=== PATIENT | female | born 1980 | race American Indian/Alaskan Native ===

== ENCOUNTER 2021-09-08 09:21 | Observation (INO) | payer OTHER ==
--- NOTE | 2021-09-08 10:12 | Emergency Department Report ---
HPI - General Chief Complaint: Dizziness Time Seen by Provider: 09/08/21 09:49 - HPI HPI: Room 25 The patient is a 41-year-old female present with a chief complaint of dizziness. 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 Patient states she would have intermittent palpitations. Patient states she felt as though she was going to pass out so she sat herself down on the ground. The patient states the dizziness eventually improved and subsided however she continues to have chest tightness. Patient states she became diaphoretic and nauseous with the chest tightness but denies vomiting or shortness of breath. Patient denies headache. Patient currently gives her chest tightness a score of 2-3/10. Patient states she had a normal stress test in the beginning of the year but has never had a cardiac catheterization ED Past Medical Hx - Past Medical History Previous Medical History?: Yes Hx Hypertension: Yes Hx Diabetes: Yes Additional medical history: Atrial fibrillation - Surgical History Past Surgical History?: No - Family History Family history: no significant - Social History Smoking Status: Never Smoker Substance Use Type: None (Denies illicit drug use) ED Review of Systems ROS: Stated complaint: LIGHT HEADED /MALAIZE Other details as noted in HPI Constitutional: diaphoresis Eyes: denies: eye pain ENT: denies: throat pain Respiratory: denies: shortness of breath Cardiovascular: chest pain, palpitations Endocrine: no symptoms reported Gastrointestinal: nausea. denies: vomiting Genitourinary: denies: dysuria Musculoskeletal: denies: back pain Neurological: vertigo. denies: headache Physical Exam - Physical Exam Vital Signs: Vital Signs 09/08/21 09/08/21 09/08/21 09:26 09:50 09:51 Temperature 98.4 F Pulse Rate 80 62 Respiratory 16 Rate Blood Pressure 170/103 [Right] O2 Sat by Pulse 100 98 Oximetry Physical Exam: GENERAL: The patient is well-developed well-nourished female lying on stretcher not appearing to be in acute distress. [] HEENT: Normocephalic. Atraumatic. Extraocular motions are intact. Patient has moist mucous membranes. No nystagmus noted NECK: Supple. Trachea midline CHEST/LUNGS: Clear to auscultation. There is no respiratory distress noted. HEART/CARDIOVASCULAR: Regular. There is no tachycardia. There is no gallop rub or murmur. ABDOMEN: Abdomen is soft, nontender. Patient has normal bowel sounds. There is no abdominal distention. SKIN: There is no rash. There is no edema. There is no diaphoresis. NEURO: The patient is awake, alert, and oriented. The patient is cooperative. The patient has no focal neurologic deficits. The patient has normal speech. Cranial nerves II through XII grossly intact. GCS 15. No dysmetria noted with [id number] bilaterally. NIHSS=0 MUSCULOSKELETAL: There is no evidence of acute injury. ED Course Vital Signs 09/08/21 09/08/21 09/08/21 09:26 09:50 09:51 Temperature 98.4 F Pulse Rate 80 62 Respiratory 16 Rate Blood Pressure 170/103 [Right] O2 Sat by Pulse 100 98 Oximetry ED Medical Decision Making - Lab Data Result diagrams: 09/08/21 10:17 09/08/21 10:17 Laboratory Tests 09/08/21 09/08/21 09/08/21 10:17 10:17 10:17 WBC 9.6 RBC 5.21 H Hgb 12.1 Hct 37.5 MCV 72 L MCH 23 L MCHC 32 RDW 16.7 H Plt Count 433 Lymph % (Auto) 24.3 O'Brien % (Auto) 4.3 Eos % (Auto) 2.7 Baso % (Auto) 0.7 Lymph # (Auto) 2.3 [place] # (Auto) 0.4 Eos # (Auto) 0.3 Baso # (Auto) 0.1 Seg Neutrophils % 68.0 Seg Neutrophils # 6.5 D-Dimer 140.31 Sodium 137 Potassium 3.9 Chloride 102.2 Carbon Dioxide 21 L Anion Gap 18 BUN 10 Creatinine 0.6 Estimated GFR > 60 BUN/Creatinine Ratio 17 Glucose 213 H Calcium 9.5 Magnesium 1.90 Total Creatine Kinase 51 CK-MB (CK-2) 1.0 CK-MB (CK-2) Rel Index 1.9 Troponin T < 0.010 TSH Free T4 HCG, Qual 09/08/21 09/08/21 10:17 10:17 WBC RBC Hgb Hct MCV MCH MCHC RDW Plt Count Lymph % (Auto) [place] % (Auto) Eos % (Auto) Baso % (Auto) Lymph # (Auto) [place] # (Auto) Eos # (Auto) Baso # (Auto) Seg Neutrophils % Seg Neutrophils # D-Dimer Sodium Potassium Chloride Carbon Dioxide Anion Gap BUN Creatinine Estimated GFR BUN/Creatinine Ratio Glucose Calcium Magnesium Total Creatine Kinase CK-MB (CK-2) CK-MB (CK-2) Rel Index Troponin T TSH 1.520 Free T4 1.16 HCG, Qual Negative - EKG Data -: EKG Interpreted by Me EKG shows normal: sinus rhythm Rate: normal - EKG Data When compared to previous EKG there are: previous EKG unavailable Interpretation: normal EKG - Radiology Data Radiology results: report reviewed (CT head), image reviewed (CT head, chest x- ray) interpreted by me: Chest x-ray-no definite focal infiltrates, no pneumothorax [facility] [address] [place] [address] Cat Scan Report Signed Patient: DARREN JOHNSON MR#: [id number] : 1980 Acct:[id number] Age/Sex: 41 / F ADM Date: 09/08/21 Loc: ED Attending Dr: Ordering Physician: ISRAEL EARL MD Date of Service: 09/08/21 Pr ocedure(s): CT head/brain wo con Accession Number(s): [id number] cc: ISRAEL EARL MD NONENHANCED CT SCAN OF THE HEAD: INDICATION / CLINICAL INFORMATION: 41 years Female; Dizziness. TECHNIQUE: Routine CT head without contrast. All CT scans at this location are performed using CT dose reduction for ALARA by means of automated exposure control. COMPARISON: None. FINDINGS: BRAIN / INTRACRANIAL CONTENTS: No acute hemorrhage, mass effect, midline shift, hydrocephalus, or acute, large territorial infarct. No chronic infarct or focal atrophy. Mild to moderate volume loss in the cerebellar vermis. No significant white matter abnormality. CRANIOCERVICAL JUNCTION: No significant abnormality. ORBITS: No si gnificant abnormality of visualized orbits. SINUSES / MASTOIDS: No significant abnormality of the visualized paranasal sinuses or mastoid air cells. ADDITIONAL FINDINGS: None. IMPRESSION: No focal parenchymal lesion Signer Name: Vadim Manzano MD Signed: 09/08/2021 12:12 PM Workstation Name: [id number] Transcribed By: BS Dictated By: Vadim Young MD Electronically Authenticated By: Vadim Young MD Signed Date/Time: 09/08/21 1212 DD/ 1126 TD/TT: Print Cancel - Differential Diagnosis Vertigo, ACS, ICH, dysrhythmia, PE Critical care attestation.: If time is entered above; I have spent that time in minutes in the direct care of this critically ill patient, excluding procedure time. ED Disposition Clinical Impression: Chest tightness, Near syncope Disposition: ADMITTED INPATIENT Is pt being admited?: Yes Does the pt Need Aspirin: Yes Condition: Stable Referrals: PRIMARY CARE, [Primary Care Provider] - 3-5 Days Time of Disposition: 12:39 (Hospitalist called (Dr. Verde)) Heart Score - HEART Score History: Highly suspicious EKG: Non-specific Age: < 45 Risk factors: 1-2 risk factors Troponin: < normal limit HEART Score: 4 - EKG Read Time Time EKG Completed: 09:52 EKG Read Time: 09:52
[2021-09-08 10:44] LABS: Basophils # (Auto) 0.1 K/mm3 (0.0-0.1); Basophils % (Auto) 0.7 % (0.0-1.8); Eosinophils # (Auto) 0.3 K/mm3 (0.0-0.4); Eosinophils % (Auto) 2.7 % (0.0-4.3); Hematocrit 37.5 % (30.3-42.9); Hemoglobin 12.1 gm/dl (10.1-14.3); Lymphocytes # (Auto) 2.3 K/mm3 (1.2-5.4); Lymphocytes % (Auto) 24.3 % (13.4-35.0); Mean Corpuscular HGB Conc 32 % (30-34); Mean Corpuscular Volume 72 fl (79-97); Monocytes # (Auto) 0.4 K/mm3 (0.0-0.8); Monocytes % (Auto) 4.3 % (0.0-7.3); Platelet Count 433 K/mm3 (140-440); Red Blood Count 5.21 M/mm3 (3.65-5.03); Red Cell Distribution Width 16.7 % (13.2-15.2)
[2021-09-08 11:06] LABS: Blood Urea Nitrogen 10 mg/dL (7-17); Calcium 9.5 mg/dL (8.4-10.2); Hemolysis Index 12
[2021-09-08] MEDS ORDERED: SODIUM CHLORIDE 0.9% 1000 ML 1,000 ML ONE (11:07)
[2021-09-08 11:13] LABS: Free T4 (Free Thyroxine) 1.16 ng/dL (0.76-1.46)
[2021-09-08] MEDS ORDERED: ONDANSETRON 4 MG/2 ML INJ IV ONE (12:10)
[2021-09-08] MEDS ORDERED: NITROGLYCERIN 2% OINT 1 GM TP ONE (12:10)
[2021-09-08] MEDS ORDERED: fentaNYL 100 MCG/2 ML INJ IV ONE (12:10)
[2021-09-08 12:16] LABS: BUN/Creatinine Ratio 17
--- NOTE | 2021-09-08 12:16 | Cat Scan Report ---
NONENHANCED CT SCAN OF THE HEAD: INDICATION / CLINICAL INFORMATION: 41 years Female; Dizziness. TECHNIQUE: Routine CT head without contrast. All CT scans at this location are performed using CT dos e reduction for ALARA by means of automated exposure control. COMPARISON: None. FINDINGS: BRAIN / INTRACRANIAL CONTENTS: No acute hemorrhage, mass effect, midline shift, hydrocephalus, or acu te, large territorial infarct. No chronic infarct or focal atrophy. Mild to moderate volume loss in t he cerebellar vermis. No significant white matter abnormality. CRANIOCERVICAL JUNCTION: No significant abnormality. ORBITS: No significant abnormality of visualized orbits. SINUSES / MASTOIDS: No significant abnormality of the visualized paranasal sinuses or mastoid air doris ls. ADDITIONAL FINDINGS: None. IMPRESSION: No focal parenchymal lesion Signer Name: Vadim Manzano MD Signed: 09/08/2021 12:12 PM Workstation Name: [id number]
[2021-09-08] MEDS ORDERED: ASPIRIN 325 MG TAB PO ONE (12:38)
--- NOTE | 2021-09-08 12:40 | History and Physical Report ---
History of Present Illness Chief complaint: My heart rate being fast and I felt like I was going to pass out History of present illness: 41 YO Female with Obesity, HTN, DM, Paroxysmal Atrial Fib not prescribed anticoagulation presents to ED for evaluation. Patient reports "my heart started beating fast and I felt like I was going to pass out". Patient states that while at work she experienced a sudden onset of chest palpitation followed by dizziness and lightheadedness. Patient knowledges dizziness, diaphoresis, nausea. EMS was notified and upon arrival the patient was found to be in distress and subsequent transported to [facility] for further care and evaluation of the aforementioned symptoms. The patient was seen and evaluated in the emergency department. Other imaging studies reviewed. Patient found to have symptoms consistent with paroxysmal atrial fibrillation, as well as angina. Patient placed in observation status and admitted to telemetry. Patient denies fever, chills, chest pain, productive cough, skin rash, recent ill contact, or known exposure to COVID-19, unilateral leg swelling, calf pain, prolonged travel/immobility, individual/family history of DVT/PE/bleeding/blood clotting disorders. No prior admission for review. All medication listed at time of admission has been reconciled. EKG reveals normal sinus rhythm. Advanced care planning conducted in ED. Past History Past Medical History: atrial fib, diabetes, hypertension, other (See HPI) Past Surgical History: No surgical history, Other (Reviewed) Social history: , lives with family. denies: smoking, alcohol abuse, prescription drug abuse Family history: diabetes, hypertension Medications and Allergies Allergies Allergy/AdvReac Type Severity Reaction Status Date / Time No Known Allergies Allergy Verified 09/08/21 09:53 Review of Systems Constitutional: weakness, no weight loss, no weight gain, no fever, no chills Ears, nose, mouth and throat: no ear pain, no tinnitis, no nose pain, no sinus pressure Breasts: no change in shape Cardiovascular: palpitations, lightheadedness Respiratory: no cough, no cough with sputum, no excessive sputum Gastrointestinal: nausea, no vomiting, no diarrhea, no constipation, no change in bowel habits, no hematemesis Genitourinary Female: no pelvic pain, no flank pain, no dysuria, no urinary frequency, no urgency Rectal: no pain, no incontinence, no bleeding Musculoskeletal: no neck stiffness, no neck pain, no shooting arm pain, no arm numbness/tingling, no low back pain, no shooting leg pain Integumentary: no rash, no pruritis, no redness, no sores, no wounds, no jaundice Neurological: no transient paralysis, no paralysis, no weakness, no parathesias, no tingling Psychiatric: no anxiety, no change in sleep habits, no insomnia, no suicidal ideation Endocrine: no cold intolerance, no polyphagia, no excessive thirst, no polydipsia, no nocturia Hematologic/Lymphatic: no easy bruising Allergic/Immunologic: no urticaria Exam - Constitutional Vitals: Temp Pulse Resp BP Pulse Ox 98.4 F 72 13 136/79 99 09/08/21 09:26 09/08/21 10:16 09/08/21 10:16 09/08/21 10:16 09/08/21 10:16 General appearance: Present: mild distress - EENT Eyes: Present: PERRL ENT: hearing intact, clear oral mucosa - Neck Neck: Present: supple, normal ROM - Respiratory Respiratory effort: normal Respiratory: bilateral: CTA - Cardiovascular Rhythm: regular Heart Sounds: Present: S1 & S2. Absent: rub, click - Extremities Extremities: pulses symmetrical, No edema Peripheral Pulses: within normal limits - Abdominal General gastrointestinal: Present: soft, non-tender, non-distended, normal bowel sounds Female genitourinary: Present: normal - Integumentary Integumentary: Present: clear, warm, dry - Musculoskeletal Musculoskeletal: gait normal, strength equal bilaterally - Psychiatric Psychiatric: appropriate mood/affect, intact judgment & insight - Neurologic Neurologic: CNII-XII intact, moves all extremities HEART Score - HEART Score EKG: Non-specific Age: < 45 Risk factors: 1-2 risk factors Troponin: Troponin T < 0.010 ng/mL (0.00-0.029) 09/08/21 10:17 Troponin: < normal limit Results - Labs CBC & Chem 7: 09/08/21 10:17 09/08/21 10:17 Labs: Abnormal lab results 09/08/21 09/08/21 Range/Units 10:17 10:17 RBC 5.21 H (3.65-5.03) M/mm3 MCV 72 L (79-97) fl MCH 23 L (28-32) pg RDW 16.7 H (13.2-15.2) % Carbon Dioxide 21 L (22-30) mmol/L Glucose 213 H (65-100) mg/dL Assessment and Plan - Patient Problems (1) Angina at rest Current Visit: Yes Status: Acute Plan to address problem: Serial cardiac enzymes, EKG, telemetry monitoring, supportive care. (2) Atrial fibrillation Current Visit: Yes Status: Acute Qualifiers: Atrial fibrillation type: paroxysmal Qualified Code(s): I48.0 - Paroxysmal atrial fibrillation Plan to address problem: Atrial fibrillation resolved. Patient back to normal sinus rhythm. Resume aspirin, outpatient cardiology follow-up. (3) Obesity (BMI 35.0-39.9 without comorbidity) Current Visit: Yes Status: Acute Plan to address problem: Balanced diet, increase physical activity discharge, outpatient pulmonary follow-up for sleep study. (4) Hypertension Current Visit: Yes Status: Acute Qualifiers: Hypertension type: primary hypertension Qualified Code(s): I10 - Essential (primary) hypertension Plan to address problem: Monitor blood pressure every shift, continue medical management. (5) Diabetes Current Visit: Yes Status: Acute Plan to address problem: Consistent carbohydrate diet, hypoglycemia protocol, insulin protocol, Accu- Chek. (6) Near syncope Current Visit: Yes Status: Acute Plan to address problem: CT head, neuro check, supportive care. (7) Advance care planning Current Visit: Yes Status: Acute Plan to address problem: Disease education conducted, care plan discussed, diagnoses discussed, prognosis discussed. Patient is full code. Patient counseled regarding paroxysmal atrial fibrillation and need to resume aspirin. Patient instructed follow with cardiology as outpatient with 3 to 5 days for reevaluation and discussion of Holter monitoring. +30 minutes. Patient and acknowledged understanding and agreement with care plan.
--- NOTE | 2021-09-08 12:40 | XRay Report ---
CHEST 1 VIEW 09/08/2021 11:29 AM INDICATION / CLINICAL INFORMATION: chest pain. COMPARISON: None available. FINDINGS: SUPPORT DEVICES: None. HEART / MEDIASTINUM: No significant abnormality. LUNGS / PLEURA: No significant pulmonary or pleural abnormality. No pneumothorax. ADDITIONAL FINDINGS: No significant additional findings. IMPRESSION: No acute abnormality. Signer Name: Steven Patterson MD Signed: 09/08/2021 12:36 PM Workstation Name: [id number]
[2021-09-08] MEDS ORDERED: HYDROmorphone 1 MG/1 ML INJ IV PRN (12:48)
[2021-09-08] MEDS ORDERED: ONDANSETRON 4 MG/2 ML INJ IV PRN (12:48)
[2021-09-08] MEDS ORDERED: oxyCODONE /ACETAMINOPHEN 5-325MG TAB PO PRN (12:48)
[2021-09-08] MEDS ORDERED: ACETAMINOPHEN 325 MG TAB PO PRN ×2 (12:48→15:57)
--- NOTE | 2021-09-08 13:42 | Electrocardiograph Report ---
[facility] Test Date: 2021-09-08 Test Time: 09:52:52 Pat Name: DARREN JOHNSON Department: Room: Gender: F Ad Setter: JENAE : 1980 Requested By: ISRAEL EARL Order Number: [id number] Reading MD: Felisa Garvin Measurements Intervals [place] Rate: 67 P: 36 TX: 179 QRS: 2 QRSD: 107 T: 11 QT: 400 QTc: 423 Interpretive Statements Sinus rhythm No previous ECG available for comparison Electronically Signed On 09-08-2021 13:42:11 EST by Felisa Garvin
[2021-09-08] MEDS ORDERED: traMADol 50 MG TAB PO PRN (15:57)
[2021-09-08] MEDS: ASPIRIN EC 325 MG TAB PO SCH (19:00)
[2021-09-08] MEDS: FAMOTIDINE 20 MG TAB PO SCH (22:24)
[2021-09-09 02:58] LABS: Bacteria,Urine 1+ /HPF (Negative); Bilirubin,Urine NEG (Negative); Blood,Urine NEG (Negative); Color,Urine Straw (Yellow); Mucus,Urine FEW /HPF; Protein,Urine <15 mg/dL mg/dL (Negative); Urobilinogen,Urine < 2.0 mg/dL (<2.0)
[2021-09-09] MEDS: ASPIRIN EC 325 MG TAB PO SCH (09:21)
[2021-09-09] MEDS: FAMOTIDINE 20 MG TAB PO SCH ×2 (09:21→21:53)
--- NOTE | 2021-09-09 09:35 | Consultation ---
History of Present Illness Consult date: 09/09/21 Requesting physician: DARSHAN HOU Consult reason: atrial fibrillation, chest pain History of present illness: Pt is a 41-year-old AA female with a hx HTN and DM2, as well as a remote hx of AF (10-12 years ago per pt report, not on any oral anticoagulation), who presented with complaints of palpitations and lightheadedness. 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 She denies syncope. Pt reports associated palpitations, which she has been experiencing intermittently for the past several years. She reports subsequent chest tightness that dissipated after a few minutes. Pt believes this episode to be stress-induced. Trop neg x 3. ECG reveals NSR, no acute ischemic changes. Pt is currently followed by a Cardiologi st in [facility] whose name she is unable to recall. She reports that she underwent cardiac stress testing in October 2020, which did not reveal any significant ischemia. Past History Past Medical History: atrial fib, diabetes, hypertension Past Surgical History: denies: valve replacement, CABG, PTCA Social history: , lives with family. denies: smoking, alcohol abuse Family history: diabetes, hypertension Medications and Allergies Allergies Allergy/AdvReac Type Severity Reaction Status Date / Time No Known Allergies Allergy Verified 09/08/21 09:53 Home Medications Medication Instructions Recorded Confirmed Last Taken Type Empagliflozin [Jardiance] 25 mg PO QDAY 09/09/21 09/09/21 09/07/21 History Insulin Glargine,Hum.rec.anlog 32 unit SQ HS 09/09/21 09/09/21 09/07/21 History [Lantus Solostar] amLODIPine [Norvasc] 5 mg PO DAILY 09/09/21 09/09/21 09/07/21 History glipiZIDE XL [Glucotrol Xl] 10 mg PO QAM 09/09/21 09/09/21 09/07/21 History Active Meds: Active Medications Acetaminophen (Acetaminophen 325 Mg Tab) 650 mg PO Q4H PRN PRN Reason: Pain MILD(1-3)/Fever >100.5/RINCON Aspirin (Aspirin Ec 325 Mg Tab) 325 mg PO QDAY NICKI Last Admin: 11/11/21 09:21 Dose: 325 mg Documented by: Famotidine (Famotidine 20 Mg Tab) 20 mg PO BID COUNTS INCLUDE 234 BEDS AT THE [facility] Last Admin: 09/09/21 09:21 Dose: 20 mg Documented by: Hydromorphone HCl (Hydromorphone 1 Mg/1 Ml Inj) 0.5 mg IV Q23H PRN PRN Reason: Pain , Severe (7-10) Metoprolol Tartrate (Metoprolol Tartrate 50 Mg Tab) 50 mg PO BID COUNTS INCLUDE 234 BEDS AT THE [facility] Ondansetron HCl (Ondansetron 4 Mg/2 Ml Inj) 4 mg IV Q8H PRN PRN Reason: Nausea And Vomiting Oxycodone/Acetaminophen (Oxycodone /Acetaminophen 5-325mg Tab) 1 tab PO Q16H PRN PRN Reason: Pain, Moderate (4-6) Sodium Chloride (Sodium Chloride 0.9% 10 Ml Flush Syringe) 10 ml IV BID COUNTS INCLUDE 234 BEDS AT THE [facility] Last Admin: 09/09/21 09:21 Dose: 10 ml Documented by: Sodium Chloride (Sodium Chloride 0.9% 10 Ml Flush Syringe) 10 ml IV PRN PRN PRN Reason: LINE FLUSH Tramadol HCl (Tramadol 50 Mg Tab) 50 mg PO Q6H PRN PRN Reason: Pain, Moderate (4-6) Review of Systems Constitutional: no fever, no chills Ears, nose, mouth and throat: no nasal congestion, no sore throat Cardiovascular: chest pain, lightheadedness, no orthopnea, no edema, no syncope, no shortness of breath, no claudication Respiratory: no cough, no shortness of breath Gastrointestinal: no abdominal pain, no nausea, no vomiting Genitourinary Female: no flank pain, no dysuria Musculoskeletal: no neck stiffness, no neck pain, no myalgias Integumentary: no rash, no wounds Neurological: no head injury, no paralysis, no numbness, no tingling, no seizures, no syncope, no vertigo, no headaches Endocrine: no cold intolerance, no heat intolerance Hematologic/Lymphatic: no easy bruising, no easy bleeding Allergic/Immunologic: no anaphylaxis Physical Examination Last Vital Signs Temp 98.8 F 09/09/21 07:53 Pulse 61 09/09/21 07:53 Resp 20 09/09/21 07:53 BP 120/68 09/09/21 07:53 Pulse Ox 98 09/09/21 08:16 General appearance: no acute distress HEENT: Positive: EOMI, Normocephaly, Mucus Membranes Moist Neck: Positive: neck supple, trachea midline. Negative: JVD/HJR Cardiac: Positive: Reg Rate and Rhythm, S1/S2. Negative: Audible Murmur Lungs: Positive: clear to auscultation Neuro: Positive: Grossly Intact Abdomen: Positive: Soft. Negative: Tender Skin: Negative: Rash Musculoskeletal: No Pain, Normal Range of Motion Extremities: Present: upper extr. pulses, lower extr. pulses. Absent: edema Results 09/08/21 10:17 09/08/21 10:17 Cardiac Enzymes 09/08/21 Range/Units 10:17 CK-MB (CK-2) 1.0 (0.0-4.0) ng/mL CBC 09/08/21 Range/Units 10:17 WBC 9.6 (4.5-11.0) K/mm3 RBC 5.21 H (3.65-5.03) M/mm3 Hgb 12.1 (10.1-14.3) gm/dl Hct 37.5 (30.3-42.9) % Plt Count 433 (140-440) K/mm3 Lymph # (Auto) 2.3 (1.2-5.4) K/mm3 [place] # (Auto) 0.4 (0.0-0.8) K/mm3 Eos # (Auto) 0.3 (0.0-0.4) K/mm3 Baso # (Auto) 0.1 (0.0-0.1) K/mm3 Comprehensive Metabolic Panel 09/08/21 Range/Units 10:17 Sodium 137 (137-145) mmol/L Potassium 3.9 (3.6-5.0) mmol/L Chloride 102.2 (98-107) mmol/L Carbon Dioxide 21 L (22-30) mmol/L BUN 10 (7-17) mg/dL Creatinine 0.6 (0.6-1.2) mg/dL Glucose 213 H (65-100) mg/dL Calcium 9.5 (8.4-10.2) mg/dL - Imaging and Cardiology Echo: pending EKG: report reviewed, image reviewed - EKG Interpretation EKG: no acute changes EKG interpretations - Telemetry EKG Rhythm: Sinus Rhythm - EKG Sinus rhythms and dysrhythmias: sinus rhythm Assessment and Plan AMI r/o. Echo reviewed - EF 55-60%, mild diastolic dysfunction, no significant valvular abnormalities. No evidence of AF or other arrhythmias on 12-lead ECG or telemetry this admission. Pt is not on oral anticoagulation. Recommend outpatient event monitor (if warranted). Will defer to Primary Direct Marketing Manager. Coronary CTA may be considered as an outpatient as well. Recommend switching Amlodipine to low-dose beta benita (Lopressor 25mg BID). Otherwise stable cardiac status. No objection to discharge from [place]. Follow-up with Primary Direct Marketing Manager in 1-2 weeks. Pt seen in conjunction with Dr. Morrell, who agrees with the assessment and plan of care. - Patient Problems (1) Atypical chest pain Current Visit: Yes Status: Acute (2) Near syncope Current Visit: Yes Status: Acute (3) PAF (paroxysmal atrial fibrillation) Current Visit: Yes Status: Chronic (4) Hypertension Current Visit: Yes Status: Chronic Qualifiers: Hypertension type: primary hypertension Qualified Code(s): I10 - Essential (primary) hypertension (5) DM2 (diabetes mellitus, type 2) Current Visit: Yes Status: Chronic (6) Obesity Current Visit: Yes Status: Chronic Qualifiers: Obesity classification: adult class 2 (BMI 35 - 39.9)
--- NOTE | 2021-09-09 09:52 | Progress Note ---
Assessment and Plan Assessment and plan: Chest pain CAD. Patient with history of CABG and PTCA. Atrial fibrillation with RVR Diabetes mellitus type 2 Hypertension 09/09/2021. Follow-up echocardiogram. Cardiology plans for coronary CTA. Continue aspirin and beta-benita. Continue SSRI, insulin, glipizide and Accu- Cheks. Rate is currently controlled History Interval history: No new issues overnight Hospitalist Physical - Constitutional Vitals: Temp Pulse Resp BP Pulse Ox 98.8 F 61 20 120/68 98 09/09/21 07:53 09/09/21 07:53 09/09/21 07:53 09/09/21 07:53 09/09/21 08:16 General appearance: Present: mild distress - EENT Eyes: Present: PERRL, EOM intact ENT: hearing intact, clear oral mucosa, dentition normal - Neck Neck: Present: supple, normal ROM - Respiratory Respiratory effort: normal Respiratory: bilateral: CTA - Cardiovascular Rhythm: regular Heart Sounds: Present: S1 & S2. Absent: gallop, rub - Extremities Extremities: no ischemia, No edema, Full ROM - Abdominal General gastrointestinal: soft, non-tender, non-distended, normal bowel sounds - Integumentary Integumentary: Present: clear, warm, dry - Neurologic Neurologic: CNII-XII intact, moves all extremities HEART Score - HEART Score EKG: Non-specific Age: < 45 Risk factors: 1-2 risk factors Troponin: Troponin T < 0.010 ng/mL (0.00-0.029) 09/09/21 05:01 Troponin: < normal limit Results - Labs CBC & Chem 7: 09/08/21 10:17 09/08/21 10:17 Labs: Laboratory Last Values WBC 9.6 K/mm3 (4.5-11.0) 09/08/21 10:17 RBC 5.21 M/mm3 (3.65-5.03) H 09/08/21 10:17 Hgb 12.1 gm/dl (10.1-14.3) 09/08/21 10:17 Hct 37.5 % (30.3-42.9) 09/08/21 10:17 MCV 72 fl (79-97) L 09/08/21 10:17 MCH 23 pg (28-32) L 09/08/21 10:17 MCHC 32 % (30-34) 09/08/21 10:17 RDW 16.7 % (13.2-15.2) H 09/08/21 10:17 Plt Count 433 K/mm3 (140-440) 09/08/21 10:17 Lymph % (Auto) 24.3 % (13.4-35.0) 09/08/21 10:17 [place] % (Auto) 4.3 % (0.0-7.3) 09/08/21 10:17 Eos % (Auto) 2.7 % (0.0-4.3) 09/08/21 10:17 Baso % (Auto) 0.7 % (0.0-1.8) 09/08/21 10:17 Lymph # (Auto) 2.3 K/mm3 (1.2-5.4) 09/08/21 10:17 [place] # (Auto) 0.4 K/mm3 (0.0-0.8) 09/08/21 10:17 Eos # (Auto) 0.3 K/mm3 (0.0-0.4) 09/08/21 10:17 Baso # (Auto) 0.1 K/mm3 (0.0-0.1) 09/08/21 10:17 Seg Neutrophils % 68.0 % (40.0-70.0) 09/08/21 10:17 Seg Neutrophils # 6.5 K/mm3 (1.8-7.7) 09/08/21 10:17 D-Dimer 140.31 ng/mlDDU (0-234) 09/08/21 10:17 Sodium 137 mmol/L (137-145) 09/08/21 10:17 Potassium 3.9 mmol/L (3.6-5.0) 09/08/21 10:17 Chloride 102.2 mmol/L (98-107) 09/08/21 10:17 Carbon Dioxide 21 mmol/L (22-30) L 09/08/21 10:17 Anion Gap 18 mmol/L 09/08/21 10:17 BUN 10 mg/dL (7-17) 09/08/21 10:17 Creatinine 0.6 mg/dL (0.6-1.2) 09/08/21 10:17 Estimated GFR > 60 ml/min 09/08/21 10:17 BUN/Creatinine Ratio 17 % 09/08/21 10:17 Glucose 213 mg/dL (65-100) H 09/08/21 10:17 POC Glucose 179 mg/dL (70-105) H 09/08/21 22:38 Calcium 9.5 mg/dL (8.4-10.2) 09/08/21 10:17 Magnesium 1.90 mg/dL (1.7-2.3) 09/08/21 10:17 Total Creatine Kinase 51 units/L (30-135) 09/08/21 10:17 CK-MB (CK-2) 1.0 ng/mL (0.0-4.0) 09/08/21 10:17 CK-MB (CK-2) Rel Index 1.9 (0-4) 09/08/21 10:17 Troponin T < 0.010 ng/mL (0.00-0.029) 09/09/21 05:01 NT-Pro-B Natriuret Pep 18.65 pg/mL (0-450) 09/08/21 10:17 TSH 1.520 mlU/mL (0.270-4.200) 09/08/21 10:17 Free T4 1.16 ng/dL (0.76-1.46) 09/08/21 10:17 HCG, Qual Negative (Negative) 09/08/21 10:17 Urine Color Straw (Yellow) 09/09/21 Unknown Urine Turbidity Clear (Clear) 09/09/21 Unknown Urine pH 5.0 (5.0-7.0) 09/09/21 Unknown Ur Specific [place] 1.017 (1.003-1.030) 09/09/21 Unknown Urine Protein <15 mg/dl mg/dL (Negative) 09/09/21 Unknown Urine Glucose (UA) >=500 mg/dL (Negative) 09/09/21 Unknown Urine Ketones Tr mg/dL (Negative) 09/09/21 Unknown Urine Blood Neg (Negative) 09/09/21 Unknown Urine Nitrite Neg (Negative) 09/09/21 Unknown Urine Bilirubin Neg (Negative) 09/09/21 Unknown Urine Urobilinogen < 2.0 mg/dL (<2.0) 09/09/21 Unknown Ur Leukocyte Esterase Sm (Negative) 09/09/21 Unknown Urine WBC (Auto) 5.0 /HPF (0.0-6.0) 09/09/21 Unknown Urine RBC (Auto) 5.0 /HPF (0.0-6.0) 09/09/21 Unknown U Epithel Cells (Auto) 1.0 /HPF (0-13.0) 09/09/21 Unknown Urine Bacteria (Auto) 1+ /HPF (Negative) 09/09/21 Unknown Urine Mucus Few /HPF 09/09/21 Unknown Urine Yeast (Budding) Few /HPF 09/09/21 Unknown Wu/IV: Voiding Method Toilet Active Medications - Current Medications Current Medications: Generic Name Dose Route Start Last Admin Trade Name Freq PRN Reason Stop Dose Admin Acetaminophen 650 mg 09/08/21 12:48 Acetaminophen 325 Mg Tab PO Q4H PRN Pain MILD(1-3)/Fever >100.5/RINCON Aspirin 325 mg 09/08/21 18:30 09/09/21 09:21 Aspirin Ec 325 Mg Tab PO 325 mg QDAY NICKI Administration Famotidine 20 mg 09/08/21 22:00 09/09/21 09:21 Famotidine 20 Mg Tab PO 20 mg BID NICKI Administration Hydromorphone HCl 0.5 mg 09/08/21 12:48 Hydromorphone 1 Mg/1 Ml Inj IV Q23H PRN Pain , Severe (7-10) Metoprolol Tartrate 50 mg 09/09/21 10:00 Metoprolol Tartrate 50 Mg Tab PO BID NICKI Ondansetron HCl 4 mg 09/08/21 12:48 Ondansetron 4 Mg/2 Ml Inj IV Q8H PRN Nausea And Vomiting Oxycodone/Acetaminophen 1 tab 09/08/21 12:48 Oxycodone /Acetaminophen 5-325mg Tab PO Q16H PRN Pain, Moderate (4-6) Sodium Chloride 10 ml 09/08/21 22:00 09/09/21 09:21 Sodium Chloride 0.9% 10 Ml Flush Syringe IV 10 ml BID NICKI Administration Sodium Chloride 10 ml 09/08/21 17:27 Sodium Chloride 0.9% 10 Ml Flush Syringe IV PRN PRN LINE FLUSH Tramadol HCl 50 mg 09/08/21 15:57 Tramadol 50 Mg Tab PO Q6H PRN Pain, Moderate (4-6)
[2021-09-09] MEDS ORDERED: METOPROLOL TARTRATE 50 MG TAB PO SCH (10:00)
--- NOTE | 2021-09-09 12:02 | Electrocardiograph Report ---
[facility] Test Date: 2021-09-09 Test Time: 07:24:58 Pat Name: DARREN SOLANO Department: Room: A468 1 Gender: F Environmental Research Scientist: MADALYN : 1980 Requested By: SHANELL FONTANEZ Order Number: [id number] Reading MD: Felisa Garvin Measurements Intervals [place] Rate: 63 P: 41 [place]: 169 QRS: 25 QRSD: 107 T: 24 QT: 429 QTc: 439 Interpretive Statements Sinus rhythm Compared to ECG 09/08/2021 09:52:52 No significant changes Electronically Signed On 09-09-2021 12:02:11 EST by Felisa Garvin
[2021-09-09] MEDS: METOPROLOL TARTRATE 25 MG TAB PO SCH (21:53)
[2021-09-09] MEDS ORDERED: NON-FORMULARY EACH (Insulin Glargine,Hum.Rec.Anlog [Lantus Solostar] 100 UNIT/ML Insuln.Pe SQ SCH (22:00)
[2021-09-09] MEDS ORDERED: INSULIN GLARGINE 100 UNITS/ML SUB-Q SCH (22:00)
[2021-09-10 07:42] VITALS: BP 125/71
--- NOTE | 2021-09-10 08:49 | Discharge Summary ---
Providers - Providers Date of Admission: 09/08/21 12:50 Date of discharge: 09/10/21 Attending physician: DARSHAN HOU 09/08/21 Consult to Cardiac Rehabilitation [CONS] Routine Reason For Exam: Phase I 09/09/21 07:34 Consult to Physician [CONS] Routine Comment: Consulting Provider: RUDDY BRADLEY Physician Instructions: Reason For Exam: afib, cp Primary care physician: BARREL RIB MATTING MACHINE OPERATOR Hospitalization Reason for admission: cp, afib Condition: Stable Hospital course: Pt is a 41-year-old AA female with a hx HTN and DM2, as well as a remote hx of AF (10-12 years ago per pt report, not on any oral anticoagulation), who presented with complaints of palpitations and lightheadedness. 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 She denied syncope. Pt reports associated palpitations, which she has been experiencing intermittently for the past several years. She reported subsequent chest tightness that dissipated after a few minutes. Pt believes this episode to be stress-induced. Trop neg x 3. ECG reveals NSR, no acute ischemic changes. Pt is currently followed by a Charge Hand in [facility] whose name she is unable to recall. She reported that she underwent cardiac stress testing in October 2020, which did not reveal any significant ischemia. The patient was admitted with diagnosis of atypical chest pain, near syncope, paroxysmal atrial fibrillation, hypertension, diabetes mellitus type 2 and obesity. The patient was seen by cardiology in consultation and underwent echocardiogram. Echocardiogram revealed EF 55-60%, mild diastolic dysfunction, no significant valvular abnormalities. No evidence of AF or other arrhythmias on 12-lead ECG or telemetry this admission. Pt is not on oral anticoagulation. Cardiology recommended outpatient event monitor (if warranted) with primary Charge Hand. Coronary CTA may be considered as an outpatient as well. Amlodipine was changed to low-dose beta-benita Lopressor 25 mg twice daily. Follow-up with primary supervisor [employer] in 1 to 2 weeks. Dedic ated discharge time 32 minutes Disposition: HOME / SELF CARE / HOMELESS Final Discharge Diagnosis (Prints w/discharge instructions): atypical chest pain likely related to GERD, near syncope, paroxysmal atrial fibrillation, hypertension, diabetes mellitus type 2 and obesity. Core Measure Documentation - Palliative Care Palliative Care/ Comfort Measures: Not Applicable - Core Measures Any of the following diagnoses?: none Exam - Constitutional Vitals: Temp Pulse Resp BP Pulse Ox 97.0 F L 65 18 125/71 94 09/10/21 07:32 09/10/21 07:32 09/10/21 07:32 09/10/21 07:32 09/10/21 07:32 General appearance: Present: no acute distress, well-nourished - EENT Eyes: Present: PERRL ENT: hearing intact, clear oral mucosa - Neck Neck: Present: supple, normal ROM - Respiratory Respiratory effort: normal Respiratory: bilateral: CTA - Cardiovascular Heart Sounds: Present: S1 & S2. Absent: rub, click - Extremities Extremities: pulses symmetrical, No edema Peripheral Pulses: within normal limits - Abdominal General gastrointestinal: Present: soft, non-tender, non-distended, normal bowel sounds Female genitourinary: Present: normal - Integumentary Integumentary: Present: clear, warm, dry - Musculoskeletal Musculoskeletal: gait normal, strength equal bilaterally - Psychiatric Psychiatric: appropriate mood/affect, intact judgment & insight - Neurologic Neurologic: CNII-XII intact, moves all extremities Plan Activity: advance as tolerated Weight Bearing Status: Weight Bear as Tolerated Diet: low fat, low cholesterol, low salt Additional Instructions: Cardiology recommended outpatient event monitor (if warranted) with primary Charge Hand. Coronary CTA may be considered as an outpatient as well. Follow-up with primary supervisor [employer] in 1 to 2 weeks Follow up with: JEFFREY RUBIO MD [Primary Care Provider] - 3-5 Days JOHNNA MICHELLE MD [Staff Physician] - 7 Days Prescriptions: Aspirin EC [Ecotrin] 325 mg PO QDAY #30 tablet Metoprolol [Lopressor TAB] 25 mg PO BID #60 tablet Famotidine [Pepcid] 20 mg PO BID #60 tablet
[2021-09-10] MEDS: METOPROLOL TARTRATE 25 MG TAB PO SCH (09:51)
[2021-09-10] MEDS: ASPIRIN EC 325 MG TAB PO SCH (09:51)
[2021-09-10] MEDS: FAMOTIDINE 20 MG TAB PO SCH (09:51)
[2021-09-10] MEDS ORDERED: amLODIPine 5 MG TAB PO SCH (10:00)
[2021-09-10] MEDS ORDERED: NON-FORMULARY EACH (Empagliflozin [Jardiance] 25 MG Tablet) PO SCH (10:00)
--- NOTE | 2021-09-10 13:00 | Electrocardiograph Report ---
[facility] Test Date: 2021-09-09 Test Time: 11:41:08 Pat Name: DARREN SOLANO Department: Room: A468 1 Gender: F Hotel Office Manager: MADALYN : 1980 Requested By: SHANELL FONTANEZ Order Number: [id number] Reading MD: Felisa Garvin Measurements Intervals [place] Rate: 58 P: 33 [place]: 176 QRS: 22 QRSD: 103 T: 14 QT: 441 QTc: 433 Interpretive Statements Sinus rhythm Normal ECG Compared to ECG 09/09/2021 07:24:58 No significant changes Electronically Signed On 09-10-2021 12:59:42 EST by Felisa Garvin
== END 2021-09-10 13:00 | disposition home or self-care (01) ==
LOC: ED 09:21 → 4A 12:50
PROVIDERS: ADMIT Internal Medicine; ATTEND Hospitalist
DX: I20.8 Other forms of angina pectoris (principal); R07.89 Other chest pain; I48.91 Unspecified atrial fibrillation; R55 Syncope and collapse; I10 Essential (primary) hypertension; E11.9 Type 2 diabetes mellitus without complications; E66.9 Obesity, unspecified; Z68.35 Body mass index [BMI] 35.0-35.9, adult; Z79.899 Other long term (current) drug therapy; Z98.890 Other specified postprocedural states; Z95.1 Presence of aortocoronary bypass graft; Z79.4 Long term (current) use of insulin; Z79.82 Long term (current) use of aspirin
CPT/HCPCS: 36415; 70450; 71045; 80048; 81001; 82550; 82553; 82962; 83735; 83880; 84439; 84443; 84484; 84703; 85025; 85379; 93005; 93306; 96372; 99285; G0378; J7030; J1815